=== PATIENT | male | born 1965 | race Caucasian/White ===

== ENCOUNTER → 2024-03-24 | Outpatient (CLI) | payer OTHER, SELFPAY ==
--- NOTE | 2024-03-24 07:50 | RAD_ITS ---
STUDY: X-RAY - ORBITS REASON FOR EXAM: Male, 58 years old. FOREIGN BODY MRI CLEARANCE TECHNIQUE: 2 frontal views of the orbits were obtained. COMPARISON: None. FINDINGS: Normal bilateral orbits without a metallic orbital foreign body. Normal visualized facial bones. Normal paranasal sinuses. The soft tissue structures are unremarkable. RAD/Orbits for Foreign Body IMPRESSION: No demonstrated metallic orbital foreign body. The patient is cleared for an MRI examination. Electronically Signed: Kip Moyer MD at 8:21 EDT ,
--- NOTE | 2024-03-24 08:45 | MRI_ITS ---
EXAM: MR CERVICAL SPINE WITHOUT INTRAVENOUS CONTRAST CLINICAL INDICATION: NECK PAIN, BILAT SHOULDER PAIN AND NUMBNESS IN FINGERS TECHNIQUE: Multiplanar and multisequence MR images of the cervical spine without intravenous contrast were performed. COMPARISON: No relevant prior studies available. FINDINGS: VERTEBRAE: Unremarkable. Normal vertebral bodies and posterior elements. Normal alignment. Normal craniocervical junction and cervicothoracic junction. No spondylolisthesis. There is preservation of the normal cervical lordosis. SPINAL CORD: Unremarkable in signal and morphology. SOFT TISSUES: Unremarkable. No prevertebral soft tissue swelling. LYMPH NODES: Unremarkable. There is no cervical adenopathy. DISCS/SPINAL CANAL/NEURAL FORAMINA: C2-C3: Normal disc height and signal intensity. No bulge or protrusion. C3-C4: Mild annular disc bulge, normal finding. Minimally flattened ventral thecal sac. Mild proximal left neural foraminal stenosis due to uncovertebral osteophytes and minimally bulging disc. C4-C5: Normal disc height and signal intensity. Mild proximal left neural foraminal stenosis due to uncovertebral osteophytes and minimally bulging disc C5-C6: Normal disc height and signal intensity. Mild annular disc bulge with mild flattening of the ventral thecal sac mild narrowing of proximal right neural foramen. Mild ligamentum flavum hypertrophy contributes to narrowing of the midline thecal sac to roughly 7.5 mm, mildly stenotic. Mild ventral cord flattening. Slight CSF signal intensity posterior to the cord. C6-C7: Mild decreased height and decreased T2 signal intensity. Moderate-marked bilateral neural foraminal stenosis due to uncovertebral osteophytes and bulging disc. Minimal narrowing of the ventral thecal sac, AP diameter in the midline roughly 1.1 cm. C7-T1: Unremarkable. Normal disc height and morphology. Normal spinal canal. Normal neuroforamina. MRI/Spine Cervical (Routine) IMPRESSION: Mild multilevel degenerative changes. Mild spinal stenosis at C5-6 and slight ventral cord flattening. Multilevel neural foraminal stenosis. Electronically Signed: Jeanne Glez MD at 2:57 EDT ,
== END | disposition home or self-care (01) ==
DX: M47.22 Other spondylosis with radiculopathy, cervical region (principal)
CPT/HCPCS: 70030; 72141